=== PATIENT | male | born 1975 | race African-American/Black ===

== ENCOUNTER 2016-04-26 01:52 | Emergency (ER) | payer SELFPAY ==
[2016-04-26 01:57] VITALS: BP 125/75
[2016-04-26] MEDS ORDERED: LIDOCAINE 1% INJ-PF (10 MG/ML) 30 ML SDV INFIL ONE (02:05)
[2016-04-26] MEDS ORDERED: AZITHROMYCIN 250 MG TABLET PO ONE (02:05)
[2016-04-26] MEDS ORDERED: CEFTRIAXONE INJ 250 MG VIAL IM ONE (02:05)
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
== END 2016-04-26 02:26 | disposition home or self-care (01) ==
LOC: ER 01:52
DX: N34.2 Other urethritis (principal); R30.0 Dysuria; F17.200 Nicotine dependence, unspecified, uncomplicated; Z20.2 Contact with and (suspected) exposure to infections with a predominantly sexual mode of transmission
CPT/HCPCS: 99283; 96372; J3490; J0696

== ENCOUNTER 2016-07-21 05:29 | Emergency (ER) | payer SELFPAY ==
[2016-07-21] MEDS ORDERED: LIDOCAINE 1% INJ-PF (10 MG/ML) 30 ML SDV INFIL ONE (06:26)
[2016-07-21] MEDS ORDERED: AZITHROMYCIN 1 GM SUSP PACKET PO ONE (06:26)
[2016-07-21] MEDS ORDERED: METRONIDAZOLE 500 MG TABLET PO ONE (06:26)
[2016-07-21] MEDS ORDERED: ONDANSETRON ODT 4 MG TAB (6 TAB/DSPK) PO PRN (06:27)
[2016-07-21] MEDS ORDERED: CEFTRIAXONE INJ 1000 MG VIAL IM ONE (06:27)
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
[2016-07-21 06:56] VITALS: BP 142/85
[2016-07-21 08:20] LABS: CHLAM PCR NOT DETECTED (NOT DETECT)
== END 2016-07-21 06:56 | disposition home or self-care (01) ==
LOC: ER 05:29
DX: R36.9 Urethral discharge, unspecified (principal); F17.200 Nicotine dependence, unspecified, uncomplicated; Z87.438 Personal history of other diseases of male genital organs
CPT/HCPCS: 99283; 96372; 87491; 87591; J3490; Q0144; J0696

== ENCOUNTER 2016-09-13 02:36 | Emergency (ER) | payer SELFPAY ==
[2016-09-13 02:46] VITALS: BP 130/89
[2016-09-13] MEDS ORDERED: CEFTRIAXONE INJ 250 MG VIAL IM ONE (03:08)
[2016-09-13] MEDS ORDERED: LIDOCAINE 1% INJ-PF (10 MG/ML) 30 ML SDV INFIL ONE (03:08)
[2016-09-13] MEDS ORDERED: AMOXICILLIN TRIHYDRATE 500 MG CAPSULE PO ONE (03:09)
[2016-09-13] MEDS ORDERED: AZITHROMYCIN 250 MG TABLET PO ONE (03:09)
[2016-09-13] MEDS ORDERED: CIPROFLOXACIN HCL/DEXAMETH OTIC DROP 7.5 ML AS ONE (03:09)
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
== END 2016-09-13 03:24 | disposition home or self-care (01) ==
LOC: ER 02:36
DX: H66.002 Acute suppurative otitis media without spontaneous rupture of ear drum, left ear (principal); H60.392 Other infective otitis externa, left ear; H92.02 Otalgia, left ear; A64 Unspecified sexually transmitted disease
CPT/HCPCS: 99283; 96372; J3490 ×2; J0696

== ENCOUNTER 2017-04-06 03:18 | Emergency (ER) | payer OTHER ==
[2017-04-06 03:22] VITALS: BP 184/76
[2017-04-06] MEDS ORDERED: KETOROLAC TROMETHAMINE 10 MG TABLET PO ONE (04:23)
[2017-04-06] MEDS ORDERED: KETOROLAC TROMETHAMINE 10 MG TABLET ONE (05:10)
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
== END 2017-04-06 05:46 | disposition home or self-care (01) ==
LOC: ER 03:18
DX: M54.5 Low back pain (principal); M25.561 Pain in right knee; F17.210 Nicotine dependence, cigarettes, uncomplicated; V87.7XXA Person injured in collision between other specified motor vehicles (traffic), initial encounter
CPT/HCPCS: 99283; 73564; 72110; J3490

== ENCOUNTER 2018-12-25 20:52 | Emergency (ER) | payer SELFPAY ==
--- NOTE | 2018-12-26 01:09 | ER Document Report ---
HPI - HPI Time Seen by Provider: 12/26/18 00:13 Pain Level: 2 Context: Patient is a 43-year-old male presents to emergency department with a chief complaint of enlarged lymph node. Patient reports last Sunday he was shaving when he cut himself with a razor on the left side of his neck. Patient reports afterwards he did go to the gym and swim in the pool. Patient reports that since then the cut from the razor has healed appropriately but he has had a swollen lymph node. Patient denies drainage from the wound. Patient states he is able to swallow without difficulty. Patient denies fever. Patient concerned because the lymph node it is not going down. Patient denies a history of diabetes. Past Medical History - General Information source: Patient - Social History Smoking Status: Current Every Day Smoker Lives with: Family Family History: None. denies: Arthritis, CAD, COPD, CVA, DM, Hyperlipidemia, Hypertension, Malignancy, Thyroid Disfunction Patient has suicidal ideation: No Patient has homicidal ideation: No - Past Medical History Cardiac Medical History: Reports: None Pulmonary Medical History: Reports: None EENT Medical History: Reports: None Neurological Medical History: Reports: None Endocrine Medical History: Reports: None Renal/ Medical History: Reports: Hx Epididymitis. Denies: Hx Peritoneal Dialysis Malignancy Medical History: Reports None GI Medical History: Reports: None Musculoskeletal Medical History: Reports Hx Musculoskeletal Deformity, Reports Hx Musculoskeletal Trauma Skin Medical History: Reports None Psychiatric Medical History: Reports: None Traumatic Medical History: Reports: None Infectious Medical History: Reports: None Past Surgical History: Reports: Hx Orthopedic Surgery - bilat knee, tendon tear - Immunizations Immunizations up to date: No Hx Diphtheria, Pertussis, Tetanus Vaccination: Yes Vertical Provider Document - CONSTITUTIONAL Agree With Documented VS: Yes Exam Limitations: No Limitations General Appearance: No Apparent Distress - INFECTION CONTROL TRAVEL OUTSIDE OF THE [place] IN LAST 30 DAYS: No - HEENT HEENT: Atraumatic, Normal ENT Exam, Normocephalic, PERRLA Notes: Patient does not have any airway swelling. Uvula is midline. No tonsillar hypertrophy. - NECK Notes: Patient does have an enlarged left anterior cervical nodes. There is no erythema, drainage or ecchymosis or edema coming from the healed laceration to the left side of his neck. - RESPIRATORY Respiratory: Breath Sounds Normal, No Respiratory Distress - CARDIOVASCULAR Cardiovascular: Regular Rate, Regular Rhythm - GI/ABDOMEN Gastrointestinal: Abdomen Soft, Abdomen Non-Tender - NEURO Level of Consciousness: Awake, Alert, Appropriate - DERM Integumentary: Warm, Dry Course - Re-evaluation Re-evalutation: 12/26/18 01:06 I did inform the patient I would like to obtain imaging to rule out an abscess. Patient reports he does not want this at the time. I did inform him that without imaging I cannot rule out an abscess or any acute abnormality of the throat/neck. Patient verbalizes understanding and agrees with being discharged. - Vital Signs Vital signs: Temp Pulse Resp BP Pulse Ox 97.9 F 95 18 150/84 H 96 12/25/18 21:00 12/25/18 21:00 12/25/18 21:00 12/25/18 21:00 12/25/18 21:00 Discharge - Discharge Clinical Impression: Enlarged lymph node in neck Condition: Stable Disposition: HOME, SELF-CARE Additional Instructions: Today you were seen in the emergency department for an enlarged lymph node. Without imaging I cannot rule out an abscess underneath the skin. I will place you on oral antibiotics. The antibiotic I will place you on is called Keflex in which she will take 4 times a day for the next 5 days. Please monitor for worsening swelling of the neck, fever or any difficulty swallowing or breathing. Please return if you develop any of the symptoms. Prescriptions: Cephalexin Monohydrate [Keflex 500 mg Capsule] 500 mg PO Q6H 5 Days #20 capsule
[2018-12-26 01:44] VITALS: BP 149/88
== END 2018-12-26 01:46 | disposition home or self-care (01) ==
LOC: ER 20:52
DX: R59.0 Localized enlarged lymph nodes (principal); F17.200 Nicotine dependence, unspecified, uncomplicated
CPT/HCPCS: 99283